=== PATIENT | female | born 1965 | race Hispanic/Latino ===

== ENCOUNTER 2020-10-26 20:06 | Inpatient (IN) | payer MEDICARE ==
[~2020-10-26] VITALS: Ht 154.9 cm; Wt 103.0 kg
[2020-10-26] MEDS ORDERED: DIVALPROEX 500MG *ER* TAB PO SCH (21:00)
[2020-10-26] MEDS ORDERED: **hydrALAZINE** 50 MG TAB PO ONE (22:05)
[2020-10-26] MEDS ORDERED: METOPROLOL TART 25 MG TABLET PO ONE (22:05)
[2020-10-26 22:34] LABS: BASO # 0.1 10^3/uL (0.0-0.2); BASO % 0.4 % (0.0-1.0); EOS # 0.3 10^3/uL (0.0-0.5); EOS % 2.1 % (0.0-3.0); HEMOGLOBIN 12.5 g/dl (12.0-15.5); LYMPH # 3.1 10^3/uL (1.5-5.0); LYMPH % 25.2 % (24.0-44.0); MEAN CORPUSCULAR HEMOGLOBIN 27.8 pg (27.0-33.0); MEAN CORPUSCULAR HGB CONC 32.9 g/dl (32.0-36.5); MEAN CORPUSCULAR VOLUME 84.6 fl (80.0-96.0); NEUTROPHILS # 7.8 10^3/uL (1.5-8.5); NEUTROPHILS % 63.8 % (36.0-66.0); PLATELET COUNT, AUTOMATED 263 10^3/uL (150-450); RED BLOOD COUNT 4.49 10^6/uL (4.00-5.40); WHITE BLOOD COUNT 12.2 10^3/uL (4.0-10.0)
[2020-10-26 23:15] LABS: ALBUMIN 3.4 GM/DL (3.2-5.2); ALT/SGPT 82 U/L (12-78); BILIRUBIN,DIRECT 0.1 MG/DL (0.0-0.2); BILIRUBIN,TOTAL 0.4 MG/DL (0.2-1.0); BLOOD UREA NITROGEN 13 MG/DL (7-18); CALCIUM LEVEL 9.4 MG/DL (8.5-10.1); CARBON DIOXIDE LEVEL 27 MEQ/L (21-32); CHLORIDE LEVEL 105 MEQ/L (98-107); CK-MB VALUE MASS 2.1 NG/ML (<3.6); CPK CREATINE PHOSPHOKINASE 189 U/L (26-192); CREATININE FOR GFR 0.54 MG/DL (0.55-1.30); FREE T4 0.86 NG/DL (0.76-1.46); GLOMERULAR FILTRATION RATE > 60.0 (>51); GLUCOSE, FASTING 107 MG/DL (70-100); MB/CK RELATIVE INDEX 1.11 (< OR =4); POTASSIUM SERUM 3.8 MEQ/L (3.5-5.1); SODIUM LEVEL 140 MEQ/L (136-145); TOTAL PROTEIN 7.6 GM/DL (6.4-8.2); TROPONIN I < 0.02 NG/ML (< 0.10)
--- NOTE | 2020-10-26 23:30 | REPVR ---
PROCEDURE INFORMATION: Exam: XR Chest Exam date and time: 10/26/2020 10:53 PM Age: 55 years old Clinical indication: Pain; Chest pressure; Additional info: Hypertensive TECHNIQUE: Imaging protocol: XR of the chest. Views: 2 views. COMPARISON: No relevant prior studies available. FINDINGS: Lungs: Unremarkable. No consolidation. No pulmonary edema. Pleural spaces: Unremarkable. No pleural effusion. No pneumothorax. Heart/Mediastinum: Unremarkable. No cardiomegaly. Bones/joints: There are endplate spurs in the thoracic spine. IMPRESSION: No acute findings. Electronically signed by: Eric Delgado On 10/26/2020 23:29:38 PM
[2020-10-26] MEDS ORDERED: LABETALOL 100MG/20ML VIAL IV STA (23:34)
--- NOTE | 2020-10-26 23:53 | HPEPDOC ---
[facility] Medical History & Physical Date of Admission Oct 27, 2020 Date of Service: Oct 27, 2020 Attending Physician: PB REN MD History and Physical TIME OF SERVICE: 1157PM CHIEF COMPLAINT: burning hands HISTORY OF PRESENT ILLNESS: came to [facility] to visit her son. Prior to arriving here she purchased peppers in [facility] to make sofritos; while mixing the ingredients, including the peppers, together with her hands she noticed that her fingers begun to burn. The burning didnt improve despite placing yogurt and Vaseline on her hands; the burning was so severe that it made her cry. Unfortunately she was distracted by the pain and forgot to take her metoprolol. She took 1 dose of hydralazine and spironolactone Despite having an SBP in the 200s, she denied having DANIEL, dizziness, chest pain or dyspnea. Her BP has not improved despite being given IV labetalol REVIEW OF SYSTEMS: 12-point review of systems negative except as listed in HPI PAST MEDICAL/ SURGICAL HISTORY: NIDDM2, resistant HTN, Asthma, Fibromyalgia, Migraines, Class 3 obesity, unspecified palpitations, Depression, Tubal ligation SOCIAL HISTORY: Former smoker / drinks alcohol socially / lives in [facility] part of the year and [place] for the rest of the year / is currently in the area visiting her son FAMILY HISTORY: DM, CAD, Depression, HTN ALLERGIES: Please see below. HOME MEDICATIONS: Please see below. PHYSICAL EXAMINATION: Vital Signs Date Time Temp Pulse Resp B/P (MAP) Pulse Ox O2 Delivery O2 Flow Rate FiO2 10/26/20 20:07 97.9 79 18 240/110 (153) 98 Room Air GENERAL APPEARANCE: well-nourished and developed / NAD HEENT: EOMI / MMM&P / no conjunctival injection CARDIOVASCULAR: RRR/NMRG LUNGS: CTAB on RA ABDOMEN: contour obese MUSCULOSKELETAL: NCAT / OSCAR x 4 INTEGUMENT: not flushed or diaphoretic / the skin on the hands is intact, there is no desquamation of the skin, no erythema or necrosis NEUROLOGICAL: CN 2-12 grossly intact PSYCHIATRIC: A&Ox 3 /able to understand and follow all commands LABORATORY DATA: EKG shows NSR w a rate of [address] changes IMAGING: Chest xray IMPRESSION: No acute findings. MICROBIOLOGY: respiratory panel neg ASSESSMENT: is a 55 yr old w DM2, resistant HTN, Asthma, Fibromyalgia, Migraines, Class 3 obesity, unspecified palpitations & Depression who will be admitted for management of Uncontrolled HTN. PLAN: 1 Uncontrolled HTN Because she asymptomatic and there are no signs of end organ damage therefore she doesnt meet the criteria to diagnosed HTN Urgency or Emergency. At her baseline she has resistant HTN but reports that her BP is usually in the 140s/80s. I suspect the trigger of the acute elevation in her BP is stress from burning her hands while cooking with hot peppers and missing her dose of metoprolol. Her Trop and EKG are unremarkable Plan: admit to PCU / telemetry / aim for a BP of <160/100 within the next few hours / give 1 dose of PO captopril now / resume home meds (spironolactone, h ydralazine and metoprolol ) / low salt diet / hold NSAIDs 2 Paresthesia 2/2 hot peppers Plan: per d/w will try topical Maalox / will also place an order for hydrocortisone and lidocaine cream 3 Transaminitis Likely due to fatty liver Plan: f/u w PCP in OR for Hepatitis panel and Liver US 4 Mild Leukocytosis Likely due to stress from the events above 5 DM2 Plan: consistent carbohydrates / f/u accuchecks / hypoglycemia protocol / sliding scale insulin / f/u A1C (target A1C is <7 to 6.5% ) 6 Asthma Plan: resume home meds 7 Migraines Plan: resume home meds 8 Depression / Fibromyalgia Plan: resume home meds 9 Class 3 Obesity She has co-existing DM and HTN which complicate her care She is a candidate for bariatric surgery Plan: f/u w PCP DVT px w SCDs (Owen Prediction Score = 1 therefore pharmacological prophylaxis is not indicated) Dispo: home after at least 2 midnights stay LATE ENTRY Per d/w the patient's RN Liliya the patient reported some relief of the paresthesia w topical Maalox and is requesting more Home Medications Scheduled Buspirone HCl (Buspirone HCl) 10 Mg Tablet, 10 MG PO TID Divalproex Sodium (Depakote ER) 500 Mg Tab.er.24h, 500 MG PO QHS Gabapentin (Gabapentin) 800 Mg Tablet, 800 MG PO TID Hydralazine HCl (Hydralazine HCl) 50 Mg Tablet, 50 MG PO TID Lurasidone HCl (Latuda) 80 Mg Tablet, 80 MG PO DAILY Metoprolol Tartrate (Metoprolol Tartrate) 50 Mg Tablet, 50 MG PO BID Simvastatin (Simvastatin) 10 Mg Tablet, 10 MG PO QHS Spironolactone (Spironolactone) 25 Mg Tablet, 25 MG PO DAILY Temazepam (Temazepam) 30 Mg Capsule, 30 MG PO QHS Scheduled PRN Butalb/Acetaminophen/Caffeine (Fioricet 50-300-40 mg Capsule) 1 Each Capsule, 1 CAP PO BID PRN for HEADACHE Naproxen (Naproxen) 500 Mg Tablet, 500 MG PO BID PRN for PAIN Allergies Coded Allergies: Penicillins (Verified Allergy, Unknown, 10/26/20) A-FIB/CHADSVASC A-FIB History Current/History of A-Fib/PAF?: No Current PO Anticoag Therapy: No PB REN MD Oct 26, 2020 23:53
[2020-10-26] MEDS ORDERED: ACETAMINOPHEN TAB 650MG DOSE (2X325MG) PO PRN (23:55)
[2020-10-26] MEDS ORDERED: MAALOX 30 ML SUSP *UDC PO PRN (23:55)
[2020-10-26] MEDS ORDERED: MOM 30ML SUSPENSION UDC PO PRN (23:55)
[2020-10-27] MEDS ORDERED: MAALOX 30 ML SUSP *UDC XX ONE (00:30)
[2020-10-27 00:43] LABS: RSV AMPLIFICATION NEGATIVE (NEGATIVE)
[2020-10-27] MEDS ORDERED: CAPTOpril 3.125 MG PER 1/4 TABLET PO ONE (01:00)
[2020-10-27] MEDS ORDERED: DEXTROSE 50% 50 ML SYRINGE IV PRN (01:15)
[2020-10-27] MEDS ORDERED: GLUCAGON INJ 1MG VIAL SC PRN (01:15)
[2020-10-27] MEDS ORDERED: GLUCOSE 4GM CHEW TABLET PO PRN (01:15)
[2020-10-27] MEDS ORDERED: HYDROCORTISONE 1% CREAM 30 GM TOP ONE (01:30)
[2020-10-27 01:55] VITALS: BP 172/100
[2020-10-27] MEDS ORDERED: MAALOX 30 ML SUSP *UDC XX PRN (03:00)
[2020-10-27] MEDS ORDERED: GABA800T4 PO (03:46)
[2020-10-27] MEDS ORDERED: SPIR-10 PO (03:46)
[2020-10-27] MEDS ORDERED: LATU80TA PO (03:46)
[2020-10-27] MEDS ORDERED: HYDR50TA PO (03:46)
[2020-10-27] MEDS ORDERED: TEMA30CA PO (03:46)
[2020-10-27] MEDS ORDERED: FIOR1CAP PO (03:46)
[2020-10-27] MEDS ORDERED: NAPR-885 PO (03:46)
[2020-10-27] MEDS ORDERED: METO50TA7 PO (03:46)
[2020-10-27] MEDS ORDERED: SIMV10TA21 PO (03:46)
[2020-10-27] MEDS ORDERED: DEPA500T2 PO (03:46)
[2020-10-27] MEDS ORDERED: BUSP10TA PO (03:46)
[2020-10-27] MEDS ORDERED: LIDOCAINE 4% CREAM 5GM (LMX4) TOP ONE (04:00)
[2020-10-27] MEDS ORDERED: FIORICET TAB PO PRN (05:20)
[2020-10-27 06:21] VITALS: BP 146/88
[2020-10-27 06:21] LABS: HEMATOCRIT 35.9 % (36.0-47.0); HEMOGLOBIN 11.7 g/dl (12.0-15.5); MEAN CORPUSCULAR HGB CONC 32.6 g/dl (32.0-36.5); MEAN CORPUSCULAR VOLUME 85.9 fl (80.0-96.0); PLATELET COUNT, AUTOMATED 226 10^3/uL (150-450); RED BLOOD COUNT 4.18 10^6/uL (4.00-5.40); WHITE BLOOD COUNT 11.3 10^3/uL (4.0-10.0)
[2020-10-27] MEDS ORDERED: SLF 3 ML SYR IV PRN (06:30)
[2020-10-27 06:48] LABS: BLOOD UREA NITROGEN 9 MG/DL (7-18); CALCIUM LEVEL 8.8 MG/DL (8.5-10.1); CARBON DIOXIDE LEVEL 29 MEQ/L (21-32); CHLORIDE LEVEL 104 MEQ/L (98-107); CREATININE FOR GFR 0.58 MG/DL (0.55-1.30); GLOMERULAR FILTRATION RATE > 60.0 (>51); GLUCOSE, FASTING 119 MG/DL (70-100); POTASSIUM SERUM 3.6 MEQ/L (3.5-5.1); SODIUM LEVEL 139 MEQ/L (136-145)
[2020-10-27 06:55] LABS: HEMOGLOBIN A1c 6.8 %
[2020-10-27] MEDS ORDERED: HumaLOG INSULIN (NovoLOG) PER UNIT SC SCH ×2 (07:30→21:00)
[2020-10-27 07:48] VITALS: BP 150/98
[2020-10-27] MEDS ORDERED: FIORICET TAB PO ONE (08:00)
[2020-10-27] MEDS ORDERED: KETOROLAC 30 MG/ML 1ML VIAL IV ONE (08:00)
[2020-10-27] MEDS ORDERED: METOCLOPRAMIDE INJ 10MG/2ML VIAL (J2765 PER 1) IV ONE (08:00)
[2020-10-27] MEDS ORDERED: METOPROLOL TART 50 MG TAB PO SCH (09:00)
[2020-10-27] MEDS ORDERED: SPIRONOLACTONE 25 MG TAB PO SCH (09:00)
[2020-10-27] MEDS ORDERED: **hydrALAZINE** 50 MG TAB PO SCH (09:00)
[2020-10-27] MEDS ORDERED: LURASIDONE HCL 40 MG TAB (LATUDA) PO SCH (09:00)
[2020-10-27] MEDS ORDERED: busPIRone 10 MG TAB PO SCH (09:00)
[2020-10-27] MEDS ORDERED: ENOXAPARIN 40MG/0.4ML SYRINGE (J1650 PER 10MG) SC SCH (09:00)
[2020-10-27] MEDS ORDERED: GABAPENTIN 400MG CAP PO SCH (09:00)
[2020-10-27 09:12] VITALS: BP 150/98
[2020-10-27] MEDS ORDERED: SLF 3 ML SYR IV SCH (14:00)
--- NOTE | 2020-10-27 14:24 | DSES ---
DISCHARGE SUMMARY DATE OF ADMISSION: 10/26/2020 DATE OF DISCHARGE: 10/27/2020 PRIMARY DISCHARGE DIAGNOSES: 1. Hypertensive urgency. 2. Paresthesias secondary to hot peppers. 3. Transaminitis due to fatty liver. 4. Type 2 diabetes. 5. Asthma. 6. Chronic migraines. 7. Depression. 8. Fibromyalgia. 9. Class 3 obesity. DISCHARGE MEDICATIONS: - buspirone 10 mg three times a day - Fioricet one capsule twice a day - Depakote 500 mg at bedtime - gabapentin 800 mg three times a day - hydralazine 50 mg three times a day - Latuda 80 mg daily - metoprolol 50 mg twice a day - Naprosyn 500 mg twice a day - simvastatin 10 mg at bedtime - spironolactone 25 mg daily - temazepam 30 mg at bedtime DISCHARGE INSTRUCTIONS: Follow up with primary care physician in [place] or in [place], if patient leaves the area in one week, as she is only visiting. Call her primary care physician if her systolic pressure is uncontrolled, greater than 140 mmHg. HOSPITAL COURSE: A 55-year-old female with history of hypertension, diabetes, asthma, fibromyalgia, migraine, class 3 obesity, unspecified, palpitations and depression, presented to the emergency room with complaints of paresthesias in her hands after touching some peppers. The patient was making sofritos with her hands when she complained of severe pain. At that time, she put yogurt and Vaseline at home. The burning made her cry. Patient forgot to take her metoprolol, but took her hydralazine and spironolactone. Blood pressure in the emergency room (ER) was found to be over 200, but denied any ischemic complaints such as chest pain, pressure, shortness of breath. No headache, changes in vision, dizziness or lightheadedness. Patient was given her home dose of medications of hydralazine, metoprolol, spironolactone, and her blood pressure improved from 167/131 to 146/88 overnight, with resolution of her symptoms. She was given topical Maalox, hydrocortisone and lidocaine pain for her hands. There were no signs of burn. Since the blood pressure improved overnight, telemetry was unremarkable, she was subsequently discharged home in stable condition. PHYSICAL EXAMINATION ON DISCHARGE: VITAL SIGNS: Temperature 98, pulse 69, respiratory rate 18, blood pressure 146/88, 99% on room air. GENERAL: Patient is awake, alert, oriented times three, answering questions appropriately. HEENT: Face is symmetric. Tongue is midline. No jugular venous distention (JVD). No thyromegaly. No cervical lymphadenopathy. LUNGS: Clear to auscultation. No wheezing, rales or rhonchi. HEART: S1, S2. Sinus rhythm. Nondisplaced point of maximum impulse. No murmurs noted. ABDOMEN: Soft, nontender, nondistended. Positive bowel sounds. EXTREMITIES: No cyanosis, clubbing or pitting edema. LABORATORY DATA ON DISCHARGE: White count 11, hemoglobin 11, hematocrit 35, platelet count 226. Sodium 139, potassium 3.6, chloride 104, bicarbonate 29, BUN 9, creatinine 0.5, glucose 119. Troponin less than 0.02. Chest x-ray 10/26/2020: No acute findings. TIME SPENT ON DISCHARGE: 30 minutes. [facility]
--- NOTE | 2020-10-27 19:41 | ECGEPIP ---
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
[2020-10-27] MEDS ORDERED: TEMAZEPAM 15 MG CAP PO SCH (21:00)
[2020-10-27] MEDS ORDERED: SIMVASTATIN 10 MG TAB PO SCH (21:00)
== END 2020-10-27 10:40 | disposition home or self-care (01) | DRG 305 ==
LOC: M ED 20:06 → M ED INP 23:51 → ENRESERV 10-27 01:13 → M PCU 10-27 01:50
PROVIDERS: ADMIT Internal Medicine; ATTEND General Practice
DX: I16.0 Hypertensive urgency (principal); Z68.41 Body mass index [BMI] 40.0-44.9, adult; R20.2 Paresthesia of skin; K76.0 Fatty (change of) liver, not elsewhere classified; J45.909 Unspecified asthma, uncomplicated; E66.9 Obesity, unspecified; I10 Essential (primary) hypertension; E11.9 Type 2 diabetes mellitus without complications; M79.7 Fibromyalgia; Z79.899 Other long term (current) drug therapy; G43.909 Migraine, unspecified, not intractable, without status migrainosus; F32.9 Major depressive disorder, single episode, unspecified